=== PATIENT | male | born 1970 | race Caucasian/White ===

== ENCOUNTER 2016-07-13 11:39 | Emergency (ER) | payer OTHER ==
[~2016-07-13] VITALS: Ht 188 cm; Wt 81.3 kg
[2016-07-13 13:21] LABS: EOSINOPHIL (%) 1.3 % (0-5); EOSINOPHIL COUNT 0.1 K/uL (0-0.3); HEMATOCRIT 43.8 % (38.0-50.0); IMMATURE GRANULOCYTE (%) 0.2 % (0.0-0.7); INSTRUMENT ABS NEUTROPHIL CT 3.5 K/uL; LYMPHOCYTE COUNT 2.1 K/uL (1.0-2.8); MCH 32.2 PG (29.0-34.0); MCHC 35.2 G/DL (30.0-36.0); MCV 91.4 FL (86-99); MONOCYTE (%) 6.4 % (3-12); MONOCYTE COUNT 0.4 K/uL (0-0.8); NEUTROPHIL (%) 57.6 % (45-76); NEUTROPHIL COUNT 3.5 K/uL (1.8-6.4); PLATELET COUNT 210 K/uL (156-360); RBC DIS.WIDTH-CV 11.9 % (11.8-14.6); RBC DIS.WIDTH-SD 40.1 % (39-53); RED BLOOD COUNT 4.79 M/uL (4.00-5.50); WHITE BLOOD COUNT 6.1 K/uL (4.1-10.2)
[2016-07-13 13:29] LABS: INTER. NORMALIZED RATIO 1.1; PROTHROMBIN TIME 11.7 (9.2-11.2); PTT 27.5 (25-32)
[2016-07-13 13:33] LABS: CHLORIDE 110 mEq/L (99-109); POTASSIUM 4.1 mEq/L (3.7-5.4); SODIUM 142 mEq/L (136-147)
[2016-07-13 13:35] LABS: GLUCOSE 98 mg/dL (70-99)
[2016-07-13 13:36] LABS: ANION GAP 8 MEQ/L (2-14)
[2016-07-13 13:39] LABS: GFR ESTIMATE (CALCULATED) > 59 mL/min/
[2016-07-13 13:40] LABS: UREA NITROGEN (BUN) 12 mg/dL (9-23)
[2016-07-13 13:45] LABS: TROP-I INTERPRETATION NEGATIVE; TROPONIN-I < 0.01 ng/mL (0.0-0.30)
[2016-07-13 16:30] VITALS: BP 106/73
== END 2016-07-13 17:21 | disposition short-term general hospital (02) ==
LOC: EME → EDBD 11:39 → EME 11:39
PROVIDERS: Emergency Medicine
PROC: 059Y3ZZ Drainage of Upper Vein, Percutaneous Approach (ICD-10-PCS; principal; 2016-07-13)
DX: I48.91 Unspecified atrial fibrillation (principal)
CPT/HCPCS: 71010; 80048; 84484; 85025; 85610; 85730; 93005; 99281; 99285; J7030

== ENCOUNTER 2016-08-21 10:17 | Emergency (ER) | payer OTHER ==
[~2016-08-21] VITALS: Ht 188 cm; Wt 83.3 kg
[2016-08-21 11:15] LABS: EOSINOPHIL (%) 2.9 % (0-5); EOSINOPHIL COUNT 0.2 K/uL (0-0.3); HEMATOCRIT 41.6 % (38.0-50.0); IMMATURE GRANULOCYTE (%) 0.2 % (0.0-0.7); INSTRUMENT ABS NEUTROPHIL CT 3.3 K/uL; LYMPHOCYTE COUNT 1.6 K/uL (1.0-2.8); MCH 32.8 PG (29.0-34.0); MCHC 36.1 G/DL (30.0-36.0); MCV 90.8 FL (86-99); MEAN PLAT.VOLUME 9.4 uM^3 (9.0-12.4); MONOCYTE (%) 7.5 % (3-12); MONOCYTE COUNT 0.4 K/uL (0-0.8); NEUTROPHIL (%) 59.9 % (45-76); NEUTROPHIL COUNT 3.3 K/uL (1.8-6.4); PLATELET COUNT 207 K/uL (156-360); RBC DIS.WIDTH-SD 39.9 % (39-53); RED BLOOD COUNT 4.58 M/uL (4.00-5.50); WHITE BLOOD COUNT 5.5 K/uL (4.1-10.2)
[2016-08-21 11:25] LABS: PROTHROMBIN TIME 26.5 (9.2-11.2)
[2016-08-21 11:26] LABS: CHLORIDE 106 mEq/L (99-109); POTASSIUM 4.3 mEq/L (3.7-5.4); SODIUM 140 mEq/L (136-147)
[2016-08-21 11:27] LABS: MAGNESIUM 1.9 mg/dL (1.3-2.7)
[2016-08-21 11:29] LABS: GLUCOSE 95 mg/dL (70-99)
[2016-08-21 11:30] LABS: ANION GAP 11 MEQ/L (2-14); INTER. NORMALIZED RATIO 2.5
[2016-08-21 11:31] LABS: TOTAL BILIRUBIN 0.9 mg/dL (0.0-1.0)
[2016-08-21 11:32] LABS: ALKALINE PHOSPHATASE 58 IU/L (3-129)
[2016-08-21 11:33] LABS: GFR ESTIMATE (CALCULATED) > 59 mL/min/
[2016-08-21 11:34] LABS: UREA NITROGEN (BUN) 12 mg/dL (9-23)
[2016-08-21 11:36] LABS: TROP-I INTERPRETATION NEGATIVE; TROPONIN-I < 0.01 ng/mL (0.0-0.30)
[2016-08-21 12:11] VITALS: BP 125/75
== END 2016-08-21 12:14 ==
LOC: EME 10:17
PROVIDERS: Emergency Medicine
DX: R00.2 Palpitations (principal); I48.91 Unspecified atrial fibrillation; R00.1 Bradycardia, unspecified; Z79.01 Long term (current) use of anticoagulants; J45.909 Unspecified asthma, uncomplicated; F20.9 Schizophrenia, unspecified; Z87.891 Personal history of nicotine dependence
CPT/HCPCS: 80053; 83735; 84484; 85025; 85610; 93005; 99281; 99284

== ENCOUNTER 2017-10-26 18:19 | Emergency (ER) | payer OTHER ==
[~2017-10-26] VITALS: Ht 188 cm; Wt 86.4 kg
[2017-10-26 19:20] LABS: HEMATOCRIT 41.8 % (38.0-50.0); HEMOGLOBIN 15.1 G/DL (12.5-16.6); MCHC 36.1 G/DL (30.0-36.0); MCV 91.5 FL (86-99); PLATELET COUNT 214 K/uL (156-360); RBC DIS.WIDTH-CV 12.7 % (11.8-14.6); RED BLOOD COUNT 4.57 M/uL (4.00-5.50); WHITE BLOOD COUNT 7.4 K/uL (4.1-10.2)
[2017-10-26 19:29] LABS: CHLORIDE 111 mEq/L (99-109); POTASSIUM 3.9 mEq/L (3.7-5.4); SODIUM 142 mEq/L (136-147)
[2017-10-26 19:30] LABS: GLUCOSE 103 mg/dL (70-99)
[2017-10-26 19:35] LABS: CREATININE 0.9 mg/dL (0.6-1.3); GFR ESTIMATE (CALCULATED) > 59 mL/min/ (58.99-99999); UREA NITROGEN (BUN) 14 mg/dL (9-23)
[2017-10-26 19:47] LABS: PTT 30.1 SEC (25-37)
[2017-10-26 19:55] LABS: TROP-I INTERPRETATION NEGATIVE; TROPONIN-I < 0.01 ng/mL (0.0-0.30)
[2017-10-27 00:10] VITALS: BP 110/92
== END 2017-10-27 00:17 ==
LOC: EME 18:19
PROVIDERS: Emergency Medicine
DX: I48.91 Unspecified atrial fibrillation (principal); Z79.82 Long term (current) use of aspirin; J45.909 Unspecified asthma, uncomplicated; F20.9 Schizophrenia, unspecified; Z87.891 Personal history of nicotine dependence; Z88.8 Allergy status to other drugs, medicaments and biological substances
CPT/HCPCS: 71046; 80048; 84484; 85027; 85610; 85730; 93005; 99281; 99285; J7030

== ENCOUNTER 2017-12-13 18:40 | Emergency (ER) | payer OTHER ==
[~2017-12-13] VITALS: Ht 188 cm; Wt 89.7 kg
[2017-12-13 19:33] LABS: HEMOGLOBIN 15.2 G/DL (12.5-16.6); MCHC 36.2 G/DL (30.0-36.0); MCV 91.1 FL (86-99); PLATELET COUNT 193 K/uL (156-360); RBC DIS.WIDTH-CV 12.6 % (11.8-14.6); RBC DIS.WIDTH-SD 41.6 % (39-53); RED BLOOD COUNT 4.61 M/uL (4.00-5.50); WHITE BLOOD COUNT 6.3 K/uL (4.1-10.2)
[2017-12-13 19:47] LABS: CHLORIDE 109 mEq/L (99-109); POTASSIUM 3.8 mEq/L (3.7-5.4); SODIUM 142 mEq/L (136-147)
[2017-12-13 19:49] LABS: GLUCOSE 92 mg/dL (70-99)
[2017-12-13 19:53] LABS: CREATININE 0.8 mg/dL (0.6-1.3); GFR ESTIMATE (CALCULATED) > 59 mL/min/ (58.99-99999)
[2017-12-13 19:54] LABS: UREA NITROGEN (BUN) 16 mg/dL (9-23)
[2017-12-13 19:57] LABS: TROP-I INTERPRETATION NEGATIVE; TROPONIN-I < 0.01 ng/mL (0.0-0.30)
[2017-12-13 23:26] VITALS: BP 104/72
== END 2017-12-13 23:28 ==
LOC: EME 18:40
PROVIDERS: Emergency Medicine
PROC: 5A2204Z Restoration of Cardiac Rhythm, Single (ICD-10-PCS; principal; 2017-12-13)
DX: I48.91 Unspecified atrial fibrillation (principal); R94.31 Abnormal electrocardiogram [ECG] [EKG]; J45.909 Unspecified asthma, uncomplicated; Z79.01 Long term (current) use of anticoagulants; Z87.891 Personal history of nicotine dependence; Z86.79 Personal history of other diseases of the circulatory system; Z85.9 Personal history of malignant neoplasm, unspecified; Z88.8 Allergy status to other drugs, medicaments and biological substances
CPT/HCPCS: 80048; 84484; 85027; 93005; 99281; 99285; J2690; J7030; J7050